=== PATIENT | male | born 1985 | race Caucasian/White ===

== ENCOUNTER → 2020-12-09 | Outpatient (CLI) | payer OTHER ==
[~2020-12-09] MED LIST: ISOVUE-370 76% 100ML VIAL ONE
--- NOTE | 2020-12-09 09:55 | REP ---
INDICATION: TESTICULAR PAIN. COMPARISON: None. TECHNIQUE: 3 x 3 mm increments using helical technique reconstructed both sagittal coronal planes before and after intravenous contrast. 100 cc Isovue 370 was administered. FINDINGS: There is no mass or adenopathy. There is no free fluid. The bowel loops are within normal limits. The bony pelvis is within normal limits. There is slight bilateral hip joint space narrowing without evidence of prominent marginal osteophytosis or buttressing. IMPRESSION: CT findings are within normal limits. <Electronically signed by Zacarias Stephens > 12/09/20 0965
== END ==
LOC: M PLAIMG 08:07
PROVIDERS: ATTEND Physician Assistant
DX: N50.811 Right testicular pain (principal); N50.812 Left testicular pain
CPT/HCPCS: 72194; Q9967

== ENCOUNTER 2022-09-07 17:58 | Emergency (ER) | payer OTHER ==
[~2022-09-07] VITALS: Ht 170.2 cm; Wt 99.1 kg
[2022-09-07] MEDS ORDERED: EPINEPHrine INJ 1 MG/ML 1ML AMP IM STA (18:23)
[2022-09-07] MEDS ORDERED: FAMOTIDINE 20MG/2ML VIAL IVP ONE (18:25)
[2022-09-07] MEDS ORDERED: diphenhydrAMINE 50MG/ML VIAL IV ONE (18:25)
[2022-09-07] MEDS ORDERED: methylPREDNISolone 125MG 2ML VIAL IV ONE (18:25)
[2022-09-07 18:43] LABS: BASO # 0.1 10^3/uL (0.0-0.2); BASO % 0.7 % (0.0-1.0); EOS # 0.2 10^3/uL (0.0-0.5); EOS % 2.1 % (0.0-3.0); HEMATOCRIT 46.4 % (42.0-52.0); LYMPH # 2.6 10^3/uL (1.5-5.0); LYMPH % 29.9 % (24.0-44.0); MEAN CORPUSCULAR HEMOGLOBIN 30.7 pg (27.0-33.0); MEAN CORPUSCULAR HGB CONC 34.5 g/dl (32.0-36.5); MEAN CORPUSCULAR VOLUME 88.9 fl (80.0-96.0); MONO # 0.7 10^3/uL (0.0-0.8); MONO % 7.9 % (2.0-8.0); NEUTROPHILS # 5.2 10^3/uL (1.5-8.5); NEUTROPHILS % 59.1 % (36.0-66.0); PLATELET COUNT, AUTOMATED 309 10^3/uL (150-450); RED BLOOD COUNT 5.22 10^6/uL (4.30-6.10); WHITE BLOOD COUNT 8.8 10^3/uL (4.0-10.0)
[2022-09-07 19:06] LABS: BLOOD UREA NITROGEN 12 MG/DL (9-23); CARBON DIOXIDE LEVEL 28 MMOL/L (20-31); CHLORIDE LEVEL 103 MMOL/L (98-107); CREATININE FOR GFR 0.98 MG/DL (0.70-1.30); GLOMERULAR FILTRATION RATE > 60.0 (>60); GLUCOSE, FASTING 109 MG/DL (60-100); POTASSIUM SERUM 3.9 MMOL/L (3.5-5.1); SODIUM LEVEL 139 MMOL/L (136-145)
[2022-09-07 22:45] VITALS: BP 103/53
[2022-09-08 18:53] LABS: ALBUMIN 4.6 G/DL (3.2-5.2); ALKALINE PHOSPHATASE 68 U/L (46-116); ALT/SGPT 41 U/L (7.0-40); AST/SGOT 23 U/L (<34); BILIRUBIN,DIRECT 0.2 MG/DL (<0.4); BILIRUBIN,TOTAL 0.6 MG/DL (0.3-1.2); TOTAL PROTEIN 7.2 G/DL (5.7-8.2)
[2022-09-08] MEDS ORDERED: BENA25CA4 PO (20:58)
[2022-09-08] MEDS ORDERED: PRED20TA PO (20:58)
[2022-09-08] MEDS ORDERED: PEPC1TAB5 PO (20:58)
[2022-09-08] MEDS ORDERED: EPIP0.3I2 IM (23:51)
== END 2022-09-07 22:53 | disposition home or self-care (01) ==
LOC: M ED 17:58
DX: R22.1 Localized swelling, mass and lump, neck (principal); T63.481A Toxic effect of venom of other arthropod, accidental (unintentional), initial encounter; F41.9 Anxiety disorder, unspecified; E55.9 Vitamin D deficiency, unspecified; H93.19 Tinnitus, unspecified ear
CPT/HCPCS: 71045; 80048; 80076; 85025; 93005; 93041; 94760; 96372; 96374; 96375; 99285; J0171; J1200; J2930; S0028

== ENCOUNTER 2022-09-08 16:35 | Emergency (ER) | payer OTHER ==
[~2022-09-08] VITALS: Ht 170.2 cm; Wt 99.8 kg
[2022-09-08] MEDS ORDERED: NS 1,000 ML IV ONE (17:20)
[2022-09-08 17:29] LABS: BASO % 0.2 % (0.0-1.0); EOS % 0.1 % (0.0-3.0); HEMATOCRIT 46.7 % (42.0-52.0); HEMOGLOBIN 15.9 g/dl (13.5-17.5); LYMPH # 2.9 10^3/uL (1.5-5.0); MEAN CORPUSCULAR HEMOGLOBIN 30.5 pg (27.0-33.0); MEAN CORPUSCULAR VOLUME 89.5 fl (80.0-96.0); MONO # 1.5 10^3/uL (0.0-0.8); MONO % 6.8 % (2.0-8.0); NEUTROPHILS # 17.4 10^3/uL (1.5-8.5); NEUTROPHILS % 79.4 % (36.0-66.0); PLATELET COUNT, AUTOMATED 324 10^3/uL (150-450); RED BLOOD COUNT 5.22 10^6/uL (4.30-6.10); WHITE BLOOD COUNT 21.9 10^3/uL (4.0-10.0)
[2022-09-08] MEDS ORDERED: diphenhydrAMINE 50MG/ML VIAL IV ONE (17:40)
[2022-09-08] MEDS ORDERED: methylPREDNISolone 125MG 2ML VIAL IV ONE (17:40)
[2022-09-08] MEDS ORDERED: FAMOTIDINE 20MG/2ML VIAL IVP ONE (17:40)
[2022-09-08 17:50] LABS: BLOOD UREA NITROGEN 14 MG/DL (9-23); CALCIUM LEVEL 9.5 MG/DL (8.5-10.1); CARBON DIOXIDE LEVEL 27 MMOL/L (20-31); CHLORIDE LEVEL 103 MMOL/L (98-107); CREATININE FOR GFR 0.94 MG/DL (0.70-1.30); GLOMERULAR FILTRATION RATE > 60.0 (>60); GLUCOSE, FASTING 117 MG/DL (60-100); POTASSIUM SERUM 3.8 MMOL/L (3.5-5.1); SODIUM LEVEL 139 MMOL/L (136-145)
[2022-09-08 19:06] LABS: ALBUMIN 4.8 G/DL (3.2-5.2); ALKALINE PHOSPHATASE 67 U/L (46-116); ALT/SGPT 38 U/L (7.0-40); AST/SGOT 16 U/L (<34); BILIRUBIN,DIRECT 0.3 MG/DL (<0.4); BILIRUBIN,TOTAL 0.8 MG/DL (0.3-1.2); TOTAL PROTEIN 7.6 G/DL (5.7-8.2)
[2022-09-08 20:11] LABS: BASO % 0.2 % (0.0-1.0); EOS % 0.1 % (0.0-3.0); HEMATOCRIT 42.1 % (42.0-52.0); HEMOGLOBIN 14.2 g/dl (13.5-17.5); LYMPH # 1.5 10^3/uL (1.5-5.0); LYMPH % 8.8 % (24.0-44.0); MEAN CORPUSCULAR HEMOGLOBIN 30.2 pg (27.0-33.0); MEAN CORPUSCULAR HGB CONC 33.7 g/dl (32.0-36.5); MEAN CORPUSCULAR VOLUME 89.6 fl (80.0-96.0); MONO # 0.7 10^3/uL (0.0-0.8); NEUTROPHILS # 14.9 10^3/uL (1.5-8.5); NEUTROPHILS % 86.3 % (36.0-66.0); PLATELET COUNT, AUTOMATED 286 10^3/uL (150-450); WHITE BLOOD COUNT 17.3 10^3/uL (4.0-10.0)
[2022-09-08 20:42] LABS: RSV AMPLIFICATION NEGATIVE (NEGATIVE)
[2022-09-08] MEDS ORDERED: PRED20TA PO (20:58)
[2022-09-08] MEDS ORDERED: PEPC1TAB5 PO (20:58)
[2022-09-08] MEDS ORDERED: BENA25CA4 PO (20:58)
[2022-09-08] MEDS ORDERED: EPINEPHrine INJ 1 MG/ML 1ML AMP IM STA (21:12)
[2022-09-08] MEDS ORDERED: EPIP0.3I2 IM (23:51)
[2022-09-09] VITALS: BP 111/55
[2022-09-09] MEDS ORDERED: OMEP-173 PO (15:06)
[2022-09-09] MEDS ORDERED: TIZA10TA PO (15:06)
[2022-09-09] MEDS ORDERED: VITMTA PO (15:06)
[2022-09-09] MEDS ORDERED: GABA600T4 PO (15:06)
[2022-09-09] MEDS ORDERED: D 50CAP2 PO (15:06)
[2022-09-09] MEDS ORDERED: XANA0.5T PO (15:06)
== END 2022-09-09 00:11 | disposition home or self-care (01) ==
LOC: M ED 16:35
DX: T78.2XXA Anaphylactic shock, unspecified, initial encounter (principal); X58.XXXA Exposure to other specified factors, initial encounter; Y92.89 Other specified places as the place of occurrence of the external cause; Y93.89 Activity, other specified; Y99.8 Other external cause status; E11.9 Type 2 diabetes mellitus without complications; Z79.899 Other long term (current) drug therapy
CPT/HCPCS: 80048; 80076; 81001; 85025; 87040; 87631; 93005; 93041; 94760; 96372; 96374; 96375; 99285; J0171; J1200; J2930; S0028

== ENCOUNTER 2022-09-09 10:29 | Inpatient (IN) | payer OTHER ==
[~2022-09-09] VITALS: Ht 170.2 cm; Wt 102.0 kg
[~2022-09-09 10:29] MED LIST changes: +BENA25CA4 PO; +EPIP0.3I2 IM; -ISOVUE-370 76% 100ML VIAL ONE; +PEPC1TAB5 PO; +PRED20TA PO
[2022-09-09 11:52] LABS: HEMATOCRIT 45.4 % (42.0-52.0); HEMOGLOBIN 15.2 g/dl (13.5-17.5); MEAN CORPUSCULAR HEMOGLOBIN 30.2 pg (27.0-33.0); MEAN CORPUSCULAR HGB CONC 33.5 g/dl (32.0-36.5); MEAN CORPUSCULAR VOLUME 90.3 fl (80.0-96.0); PLATELET COUNT, AUTOMATED 315 10^3/uL (150-450); RED BLOOD COUNT 5.03 10^6/uL (4.30-6.10); WHITE BLOOD COUNT 19.6 10^3/uL (4.0-10.0)
[2022-09-09] MEDS ORDERED: diphenhydrAMINE 50MG/ML VIAL IV STA (11:52)
[2022-09-09] MEDS ORDERED: methylPREDNISolone 125MG 2ML VIAL IV ONE (11:55)
[2022-09-09] MEDS ORDERED: NS 1,000 ML IV ONE (11:55)
[2022-09-09] MEDS ORDERED: FAMOTIDINE 20MG/2ML VIAL IVP ONE (11:55)
[2022-09-09 11:58] LABS: ERYTHROCYTE SEDIMENTATION RATE 4 mm/hr (0-15)
[2022-09-09 12:05] LABS: ATYPICAL LYMPH 3 % (0-5); LYMPHOCYTES 11 % (16-44); MONOCYTES 3 % (0-5); NEUTROPHILS 83 % (28-66)
[2022-09-09 12:09] LABS: PLATELET ESTIMATE NORMAL (NORMAL)
[2022-09-09 12:28] LABS: C REACTIVE PROTEIN QUANTITATIV < 0.40 MG/DL (<1.0)
[2022-09-09 12:29] LABS: COMPLEMENT C4 26.8 MG/DL (12-36)
[2022-09-09 12:36] LABS: ALBUMIN 4.4 G/DL (3.2-5.2); ALKALINE PHOSPHATASE 53 U/L (46-116); ALT/SGPT 29 U/L (7.0-40); AST/SGOT 11 U/L (<34); BILIRUBIN,DIRECT 0.4 MG/DL (<0.4); BLOOD UREA NITROGEN 15 MG/DL (9-23); CALCIUM LEVEL 9.6 MG/DL (8.5-10.1); CARBON DIOXIDE LEVEL 28 MMOL/L (20-31); CHLORIDE LEVEL 107 MMOL/L (98-107); CREATININE FOR GFR 0.92 MG/DL (0.70-1.30); GLOMERULAR FILTRATION RATE > 60.0 (>60); GLUCOSE, FASTING 105 MG/DL (60-100); SODIUM LEVEL 142 MMOL/L (136-145); TOTAL PROTEIN 7.1 G/DL (5.7-8.2)
[2022-09-09] MEDS ORDERED: ISOVUE-370 76% 100ML VIAL As Ordered ONE (12:46)
[2022-09-09 14:26] LABS: MONO REFLEX EBV COMP NEGATIVE (NEGATIVE)
[2022-09-09] MEDS ORDERED: ACETAMINOPHEN TAB 650MG DOSE (2X325MG) PO PRN (14:55)
[2022-09-09] MEDS ORDERED: XANA0.5T PO (15:06)
[2022-09-09] MEDS ORDERED: VITMTA PO (15:06)
[2022-09-09] MEDS ORDERED: OMEP-173 PO (15:06)
[2022-09-09] MEDS ORDERED: D 50CAP2 PO (15:06)
[2022-09-09] MEDS ORDERED: TIZA10TA PO (15:06)
[2022-09-09] MEDS ORDERED: GABA600T4 PO (15:06)
[2022-09-09] MEDS ORDERED: HOME MED LIST COMPLETE! XX SCH (15:10)
[2022-09-09 16:02] VITALS: BP 162/78
[2022-09-09 16:10] LABS: INR 0.93; PROTHROMBIN TIME 12.7 SECONDS (12.5-14.5)
[2022-09-09 16:11] LABS: PARTIAL THROMBOPLASTIN TIME 25.4 SECONDS (24.8-34.2)
[2022-09-09 18:17] VITALS: BP 147/79
[2022-09-09] MEDS: diphenhydrAMINE 25MG CAP PO SCH ×2 (18:17→23:10)
[2022-09-09] MEDS: MAALOX 30 ML SUSP *UDC PO PRN (19:15)
[2022-09-09 20:30] VITALS: BP 129/69
[2022-09-09] MEDS: methylPREDNISolone 125MG 2ML VIAL IV SCH (20:40)
[2022-09-10 01:16] VITALS: BP 113/57
[2022-09-10] MEDS: methylPREDNISolone 125MG 2ML VIAL IV SCH ×3 (04:49→20:56)
[2022-09-10 04:52] VITALS: BP 121/66
[2022-09-10] MEDS: diphenhydrAMINE 25MG CAP PO SCH ×3 (06:18→18:20)
[2022-09-10 06:38] LABS: HEMATOCRIT 44.6 % (42.0-52.0); HEMOGLOBIN 14.7 g/dl (13.5-17.5); MEAN CORPUSCULAR HEMOGLOBIN 29.9 pg (27.0-33.0); MEAN CORPUSCULAR VOLUME 90.8 fl (80.0-96.0); PLATELET COUNT, AUTOMATED 281 10^3/uL (150-450); RED BLOOD COUNT 4.91 10^6/uL (4.30-6.10); WHITE BLOOD COUNT 17.9 10^3/uL (4.0-10.0)
[2022-09-10 06:55] LABS: ALKALINE PHOSPHATASE 48 U/L (46-116); ALT/SGPT 25 U/L (7.0-40); AST/SGOT < 8 U/L (<34); BILIRUBIN,TOTAL 0.8 MG/DL (0.3-1.2); BLOOD UREA NITROGEN 18 MG/DL (9-23); CALCIUM LEVEL 8.9 MG/DL (8.5-10.1); CARBON DIOXIDE LEVEL 28 MMOL/L (20-31); CHLORIDE LEVEL 105 MMOL/L (98-107); CREATININE FOR GFR 0.86 MG/DL (0.70-1.30); GLOMERULAR FILTRATION RATE > 60.0 (>60); GLUCOSE, FASTING 193 MG/DL (60-100); POTASSIUM SERUM 4.2 MMOL/L (3.5-5.1); SODIUM LEVEL 140 MMOL/L (136-145); TOTAL PROTEIN 6.4 G/DL (5.7-8.2)
[2022-09-10] MEDS: FAMOTIDINE 20 MG TAB PO SCH (08:07)
[2022-09-10 08:12] VITALS: BP 133/72
[2022-09-10] MEDS ORDERED: PANTOPRAZOLE 40MG TAB (PROTONIX) PO SCH (09:00)
[2022-09-10] MEDS ORDERED: ALPRAZolam 0.5 MG TAB PO ONE ×2 (10:25→13:30)
[2022-09-10] MEDS: MAALOX 30 ML SUSP *UDC PO PRN (11:42)
[2022-09-10] MEDS ORDERED: CALCIUM CARBONATE 500 MG CHEW U/D PO PRN (12:00)
[2022-09-10] MEDS ORDERED: GLUCOSE 4GM CHEW TABLET PO PRN (12:10)
[2022-09-10] MEDS ORDERED: DEXTROSE 50% 50ML SYRINGE IV PRN (12:10)
[2022-09-10] MEDS ORDERED: GLUCAGON INJ 1MG VIAL SC PRN (12:10)
[2022-09-10] MEDS: INSULIN LISPRO (NovoLOG) PER UNIT SC SCH ×2 (13:37→18:19)
[2022-09-10] MEDS: PANTOPRAZOLE 40MG TAB (PROTONIX) PO SCH (13:37)
[2022-09-10 16:08] VITALS: BP 146/73
[2022-09-10 18:07] LABS: RHEUMATOID FACTOR QUANT < 3.5 IU/ML (<14); VITAMIN B12 LEVEL 279 PG/ML (211-911)
[2022-09-10 20:34] VITALS: BP 109/56
[2022-09-10] MEDS: DOXYCYCLINE HYCLATE 100MG TABLET PO SCH (20:56)
[2022-09-10] MEDS ORDERED: INSULIN LISPRO (NovoLOG) PER UNIT SC SCH (21:00)
[2022-09-11] MEDS: diphenhydrAMINE 25MG CAP PO SCH ×3 (00:54→11:26)
[2022-09-11 01:39] VITALS: BP 111/65
[2022-09-11] MEDS: methylPREDNISolone 125MG 2ML VIAL IV SCH ×2 (05:15→11:27)
[2022-09-11 05:24] VITALS: BP 120/58
[2022-09-11 06:10] LABS: HEMATOCRIT 48.5 % (42.0-52.0); HEMOGLOBIN 16.6 g/dl (13.5-17.5); MEAN CORPUSCULAR HEMOGLOBIN 30.9 pg (27.0-33.0); MEAN CORPUSCULAR HGB CONC 34.2 g/dl (32.0-36.5); MEAN CORPUSCULAR VOLUME 90.3 fl (80.0-96.0); PLATELET COUNT, AUTOMATED 323 10^3/uL (150-450); RED BLOOD COUNT 5.37 10^6/uL (4.30-6.10); WHITE BLOOD COUNT 19.9 10^3/uL (4.0-10.0)
[2022-09-11 06:33] LABS: ALBUMIN 4.5 G/DL (3.2-5.2); ALKALINE PHOSPHATASE 59 U/L (46-116); ALT/SGPT 23 U/L (7.0-40); AST/SGOT < 8 U/L (<34); BLOOD UREA NITROGEN 17 MG/DL (9-23); CALCIUM LEVEL 9.4 MG/DL (8.5-10.1); CARBON DIOXIDE LEVEL 29 MMOL/L (20-31); CHLORIDE LEVEL 103 MMOL/L (98-107); CREATININE FOR GFR 0.92 MG/DL (0.70-1.30); GLOMERULAR FILTRATION RATE > 60.0 (>60); GLUCOSE, FASTING 160 MG/DL (60-100); POTASSIUM SERUM 4.1 MMOL/L (3.5-5.1); SODIUM LEVEL 139 MMOL/L (136-145); TOTAL PROTEIN 7.1 G/DL (5.7-8.2)
[2022-09-11] MEDS: DOXYCYCLINE HYCLATE 100MG TABLET PO SCH (08:28)
[2022-09-11] MEDS: INSULIN LISPRO (NovoLOG) PER UNIT SC SCH (08:28)
[2022-09-11] MEDS: FAMOTIDINE 20 MG TAB PO SCH (08:28)
[2022-09-11] MEDS: PANTOPRAZOLE 40MG TAB (PROTONIX) PO SCH (08:28)
[2022-09-11 08:44] VITALS: BP 132/79
[2022-09-11] MEDS ORDERED: PRED10PA PO (10:25)
[2022-09-11] MEDS ORDERED: BENA25CA4 PO (10:25)
[2022-09-11] MEDS ORDERED: DOXY100T PO (10:25)
[2022-09-11] MEDS ORDERED: OMEP-173 PO (10:42)
[2022-09-11] MEDS ORDERED: ALPRAZolam 0.25 MG TAB PO ONE (11:20)
[2022-09-12 16:09] LABS: HISTAMINE PLASMA 0.32 ng/mL (<1.00)
[2022-09-13 20:08] LABS: ANA (HEP2) Negative (.); COPPER PLASMA 98 ug/dL (69-132)
== END 2022-09-11 12:31 | disposition home or self-care (01) | DRG 916 ==
LOC: M ED 10:29 → M ED INP 10:30 → ENRESERVDT 15:07 → ENRESERVTM 15:07 → M PCU 15:52 → OBSVTOIN 09-10 12:12
PROVIDERS: ADMIT Internal Medicine; ATTEND Family Medicine
DX: T78.49XA Other allergy, initial encounter (principal); A69.20 Lyme disease, unspecified; E55.9 Vitamin D deficiency, unspecified; E11.9 Type 2 diabetes mellitus without complications; M54.9 Dorsalgia, unspecified; G89.29 Other chronic pain; R20.0 Anesthesia of skin; T63.481A Toxic effect of venom of other arthropod, accidental (unintentional), initial encounter; M79.2 Neuralgia and neuritis, unspecified

== ENCOUNTER 2022-12-17 20:13 | Emergency (ER) | payer OTHER ==
[~2022-12-17] VITALS: Ht 175.3 cm; Wt 94.7 kg
[~2022-12-17 20:13] MED LIST changes: +D 50CAP2 PO; +DOXY100T PO; +GABA600T4 PO; +OMEP-173 PO; +PRED10PA PO; +TIZA10TA PO; +VITMTA PO; +XANA0.5T PO
[2022-12-17] MEDS ORDERED: CEPH500C PO ×2 (22:03→22:04)
[2022-12-17] MEDS ORDERED: CEPHALEXIN 500 MG CAP PO ONE (22:05)
[2022-12-17 22:25] VITALS: BP 132/84; TEMP 98.4; O2SAT 98
== END 2022-12-17 22:28 | disposition home or self-care (01) ==
LOC: M ED 20:13
DX: S90.861A Insect bite (nonvenomous), right foot, initial encounter (principal); E11.42 Type 2 diabetes mellitus with diabetic polyneuropathy; K21.9 Gastro-esophageal reflux disease without esophagitis; Z79.899 Other long term (current) drug therapy